=== PATIENT | female | born 2000 | race Caucasian/White ===

== ENCOUNTER 2018-01-07 21:35 | Emergency (ER) | payer OTHER ==
[2018-01-07 22:02] LABS: URINE HCG POC HCG NEGATIVE (Negative)
[2018-01-07 22:04] LABS: BILIRUBIN,URINE SMALL (NEG); CLARITY,URINE CLOUDY; COLOR,URINE YELLOW; GLUCOSE,URINE NEGATIVE (NEG); NITRITE,URINE NEGATIVE (NEG); PROTEIN,URINE 30 mg/dL (NEG-TRACE); UROBILINOGEN,URINE 0.2 mg/dL (0.2 mg/dL)
[2018-01-07 22:14] LABS: BACTERIA,URINE MODERATE /HPF (0-FEW); RBC,URINE 0 /HPF (0-2); SQUAMOUS EPITHELIAL CELL,UR MANY /LPF
[2018-01-07] MEDS: IV NORMAL SALINE 1000ML BAG 1,000 ML IV (22:29)
[2018-01-07] MEDS: ACETAMINOPHEN 500 MG TABLET PO (22:29)
[2018-01-07 22:40] LABS: ADD MAN DIFF? NO
[2018-01-07 22:43] LABS: BASO % 0 % (0-3); EOS % 0 % (0-3); HEMATOCRIT 37.8 % (36.0-47.0); HEMOGLOBIN 12.7 g/dL (12.0-15.5); LYMPH # 1.7 x10^3/uL (1.0-4.8); LYMPH % 13 % (24-48); MEAN CORPUSCULAR HEMOGLOBIN 30 pg (25-35); MEAN CORPUSCULAR HGB CONC 34 g/dL (31-37); MEAN CORPUSCULAR VOLUME 88 fL (79-100); MONO % 8 % (0-9); NEUT # 9.9 x10^3uL (1.8-7.7); NEUT % 79 % (31-73); PLATELET COUNT 161 x10^3/uL (140-400); RED BLOOD COUNT 4.32 x10^6/uL (3.50-5.40); RED CELL DISTRIBUTION WIDTH 14.4 % (11.5-14.5); WHITE BLOOD COUNT 12.6 x10^3/uL (4.0-11.0)
[2018-01-07 23:03] LABS: ALBUMIN 3.4 g/dL (3.4-5.0); ALBUMIN/GLOBULIN RATIO 0.8 (1.0-1.7); ALK PHOS 69 U/L (46-116); ALT (SGPT) 13 U/L (14-59); ANION GAP 13 (6-14); AST (SGOT) 16 U/L (15-37); BLOOD UREA NITROGEN 9 mg/dL (7-20); BUN/CREATININE RATIO 10 (6-20); CALCIUM 8.5 mg/dL (8.5-10.1); CARBON DIOXIDE 19 mmol/L (21-32); CHLORIDE 101 mmol/L (98-107); CREATININE 0.9 mg/dL (0.6-1.0); GFR 80.7; GLUCOSE 93 mg/dL (70-99); LIPASE 81 U/L (73-393); SODIUM 133 mmol/L (136-145); TOTAL BILIRUBIN 0.6 mg/dL (0.2-1.0); TOTAL PROTEIN 7.7 g/dL (6.4-8.2)
[2018-01-07 23:06] LABS: POTASSIUM 2.9 mmol/L (3.5-5.1)
[2018-01-07] MEDS: POTASSIUM CHLORIDE 20 MEQ TABLET.ER. PO (23:29)
[2018-01-07] MEDS ORDERED: CONTRAST GIVEN MC (23:45)
[2018-01-08] MEDS: IOHEXOL 300 MG/ML 100ML VIAL. IV
== END 2018-01-08 01:15 | disposition home or self-care (01) ==
LOC: ER 01-08 01:15
DX: K52.9 Noninfective gastroenteritis and colitis, unspecified (principal); F90.9 Attention-deficit hyperactivity disorder, unspecified type; Z90.49 Acquired absence of other specified parts of digestive tract
CPT/HCPCS: 36415; 74177; 80053; 81001; 81025; 83690; 84702; 85025; 87086; 87186; 96360; 99285-25; J7030; Q9967